=== PATIENT | male | born 1940 | race Caucasian/White ===

== ENCOUNTER 2019-02-15 09:16 | Emergency (ER) | payer MEDICARE ==
[~2019-02-15] VITALS: Ht 182.9 cm; Wt 70.3 kg
[2019-02-15] MEDS ORDERED: IV NORMAL SALINE 1000ML BAG 1,000 ML IV SCH (09:33)
--- NOTE | 2019-02-15 09:53 | EKG ---
[facility] [address] [place] [address] Test Date: 2019-02-15 Test Time: 09:27:37 Pat Name: TICO YORK Department: Room: Gender: M Administrative Dietitian: : 1940 Requested By: KARLO GUTIERREZ Order Number: [id number] Reading MD: Kyrie Bills MD Measurements Intervals [place] Rate: 171 P: OK: QRS: 5 QRSD: 90 T: 78 QT: 290 QTc: 491 Interpretive Statements SUPRAVENTRICULAR TACHYCARDIA ST & T ABNORMALITY, CONSIDER HIGH LATERAL ISCHEMIA OR LEFT VENTRICULAR STRAIN ABNORMAL ECG Electronically Signed On 02-21-2019 17:24:25 CDT by Kyrie Bills MD
[2019-02-15] MEDS ORDERED: MIDAZOLAM HCL/PF 5 MG/5 ML VIAL. NS ONE (10:00)
[2019-02-15] MEDS ORDERED: ADENOSINE 6 MG/2 ML VIAL. IV ONE (10:00)
--- NOTE | 2019-02-15 10:00 | PHYS DOC ---
Past Medical History Alcohol Use: None Drug Use: None Adult General Chief Complaint Chief Complaint: agitation, fall HPI HPI Patient is a 78 year old male who presents via EMS with agitation and fall. Patient has advanced dementia and is nonverbal and bedridden on hospice. Patient was at retirement and his took him home 3 days ago because she was not happy with the care. Patient stated he was not eating or drinking anything for the last 2 days. Hospice care was that started yesterday with consideration of :[facility]" placement. Patient was agitated and had a semi-fall from his bed and stuck at the rail of his hospital bed prior to arrival to ER and his called 911. Patient is nonverbal and does not follow commands. Patient had heart rate of 170s and blood pressure of 90/60 reported by EMS. Review of Systems Review of Systems Unable to obtain because of mental condition and nonverbal Current Medications Current Medications Current Medications Medications (Trade) Dose Ordered Sig/Robi Start Time Stop Time Status Last Admin Dose Admin Adenosine (Adenocard) 12 mg 1X ONCE 02/15/19 10:00 02/15/19 10:01 DC Fentanyl Citrate (Fentanyl 2ml Vial) 50 mcg 1X ONCE 02/15/19 11:30 02/15/19 11:31 DC 02/15/19 11:10 50 MCG Midazolam HCl (Versed) 5 mg 1X ONCE 02/15/19 10:00 02/15/19 10:01 DC Sodium Chloride 1,000 ml @ 1,000 mls/hr Q1H 02/15/19 09:33 02/15/19 10:32 DC 02/15/19 09:54 1,000 MLS/HR Allergies Allergies Allergies Coded Allergies Type Severity Reaction Last Updated Verified Penicillins Allergy Unknown 02/15/19 Yes Sulfa (Sulfonamide Antibiotics) Allergy Unknown 02/15/19 Yes levofloxacin Allergy Unknown 02/15/19 Yes Physical Exam Physical Exam Constitutional: Nonverbal, does not follow commands, keeps his eyes closed, agitated. HENT: Normocephalic, atraumatic. Eyes: Does not open his eyes Neck: Normal range of motion, no tenderness, supple, no stridor. [] Cardiovascular: Tachycardia Lungs & Thorax: Bilateral breath sounds clear to auscultation [] Abdomen: Bowel sounds normal, soft, no tenderness, no masses, no pulsatile masses. [] Skin: Warm, dry, no erythema, no rash. [] Extremities: Old wound of right knee, no deformity Neurologic: Moving extremities, nonresponsive to verbal stimuli Psychologic:unable to evaluate Current Patient Data Vital Signs Vital Signs Date Time Temp Pulse Resp B/P (MAP) Pulse Ox O2 Delivery O2 Flow Rate FiO2 02/15/19 10:52 96 18 102/70 (81) 96 Nasal Cannula 2.0 02/15/19 09:25 98.2 98.2 Lab Values Laboratory Tests Test 02/15/19 09:45 White Blood Count 13.8 x10^3/uL (4.0-11.0) H Red Blood Count 2.68 x10^6/uL (4.30-5.70) L Hemoglobin 8.5 g/dL (13.0-17.5) L Hematocrit 26.1 % (39.0-53.0) L Mean Corpuscular Volume 97 fL (79-100) Mean Corpuscular Hemoglobin 32 pg (25-35) Mean Corpuscular Hemoglobin Concent 33 g/dL (31-37) Red Cell Distribution Width 14.1 % (11.5-14.5) Platelet Count 612 x10^3/uL (140-400) H Neutrophils (%) (Auto) 87 % (31-73) H Lymphocytes (%) (Auto) 8 % (24-48) L Monocytes (%) (Auto) 5 % (0-9) Eosinophils (%) (Auto) 0 % (0-3) Basophils (%) (Auto) 0 % (0-3) Neutrophils # (Auto) 12.0 x10^3/uL (1.8-7.7) H Lymphocytes # (Auto) 1.0 x10^3/uL (1.0-4.8) Monocytes # (Auto) 0.7 x10^3/uL (0.0-1.1) Eosinophils # (Auto) 0.0 x10^3/uL (0.0-0.7) Basophils # (Auto) 0.0 x10^3/uL (0.0-0.2) Segmented Neutrophils % 91 % (35-66) H Lymphocytes % 6 % (24-48) L Monocytes % 2 % (0-10) Eosinophils % 1 % (0-5) Platelet Estimate Increased (ADEQUATE) Prothrombin Time 17.3 SEC (11.7-14.0) H Prothrombin Time INR 1.4 (0.8-1.1) H Sodium Level 152 mmol/L (136-145) H Potassium Level 4.4 mmol/L (3.5-5.1) Chloride Level 112 mmol/L (98-107) H Carbon Dioxide Level 28 mmol/L (21-32) Anion Gap 12 (6-14) Blood Urea Nitrogen 95 mg/dL (8-26) H Creatinine 2.8 mg/dL (0.7-1.3) H Estimated GFR (Cockcroft-Gault) 22.0 BUN/Creatinine Ratio 34 (6-20) H Glucose Level 216 mg/dL (70-99) H Calcium Level 9.3 mg/dL (8.5-10.1) Magnesium Level 2.6 mg/dL (1.8-2.4) H Total Bilirubin 0.5 mg/dL (0.2-1.0) Aspartate Amino Transferase (AST) 26 U/L (15-37) Alanine Aminotransferase (ALT) 27 U/L (16-63) Alkaline Phosphatase 29 U/L (46-116) L Creatine Kinase 150 U/L (39-308) Troponin I Quantitative 0.121 ng/mL (0.000-0.055) ZH-Tqr-[id number]-Type Natriuretic Peptide 1679 pg/mL (0-449) H Total Protein 6.2 g/dL (6.4-8.2) L Albumin 2.6 g/dL (3.4-5.0) L Albumin/Globulin Ratio 0.7 (1.0-1.7) L Lipase 335 U/L (73-393) Laboratory Tests 02/15/19 09:45 Laboratory Tests 02/15/19 09:45 EKG EKG EKG interpreted by me. EKG at 0927 showed SVT at this of 172, ST-T wave abnormalities. Radiology/Procedures Radiology/Procedures [] Course & Med Decision Making Course & Med Decision Making Pertinent Labs and Imaging studies reviewed. (See chart for details) Personal patient in ER showed 78-year-old male patient with advanced dementia and nonverbal brought in because of agitation. Patient had SVT at heart rate of 170s that spontaneously changed to normal sinus rhythm after starting IV fluid. Patient stated nonverbal while he was in ER. Labs showed severe dehydration and hyponatremia. Patient's who has DPOA was informed about test result and she decided to take patient home with hospice care. Patient signed AGAINST MEDICAL ADVICE and patient was transferred by EMS to his home. Dragon Disclaimer Dragon Disclaimer This electronic medical record was generated, in whole or in part, using a voice recognition dictation system. Departure Departure Impression: Primary Impression: Severe dehydration Additional Impressions: SVT (supraventricular tachycardia) Severe dementia DNR (do not resuscitate) Anemia Altered level of consciousness Disposition: 07 AGAINST MEDICAL ADVICE Condition: GUARDED Problem Qualifiers Additional Impressions: Anemia Anemia type: unspecified type Qualified Codes: D64.9 - Anemia, unspecified KARLO GUTIERREZ MD Feb 15, 2019 10:00
--- NOTE | 2019-02-15 10:02 | RAD ---
EXAM: AP View of the chest DATE: 02/15/2019 9:33 AM INDICATION: SVT, SOA COMPARISON: No Prior FINDINGS: The heart is not enlarged. Mediastinal and hilar contours are normal. No focal parenchymal airspace opacity. No pleural effusion or pneumothorax. IMPRESSION: 1. No radiographic evidence for acute cardiopulmonary process. Electronically signed by: Larry Jara MD (02/15/2019 9:59 AM) [facility]
[2019-02-15 10:07] LABS: BASO % 0 % (0-3); EOS % 0 % (0-3); HEMATOCRIT 26.1 % (39.0-53.0); HEMOGLOBIN 8.5 g/dL (13.0-17.5); LYMPH % 8 % (24-48); MEAN CORPUSCULAR HEMOGLOBIN 32 pg (25-35); MEAN CORPUSCULAR HGB CONC 33 g/dL (31-37); MEAN CORPUSCULAR VOLUME 97 fL (79-100); MONO # 0.7 x10^3/uL (0.0-1.1); MONO % 5 % (0-9); NEUT % 87 % (31-73); PLATELET COUNT 612 x10^3/uL (140-400); RED BLOOD COUNT 2.68 x10^6/uL (4.30-5.70); RED CELL DISTRIBUTION WIDTH 14.1 % (11.5-14.5); WHITE BLOOD COUNT 13.8 x10^3/uL (4.0-11.0)
[2019-02-15 10:18] LABS: PROTHROMBIN TIME PATIENT 17.3 SEC (11.7-14.0)
[2019-02-15 10:21] LABS: CALCIUM 9.3 mg/dL (8.5-10.1); CREATININE 2.8 mg/dL (0.7-1.3); POTASSIUM 4.4 mmol/L (3.5-5.1)
[2019-02-15 10:28] LABS: ALBUMIN 2.6 g/dL (3.4-5.0); ALBUMIN/GLOBULIN RATIO 0.7 (1.0-1.7); MAGNESIUM 2.6 mg/dL (1.8-2.4); TOTAL BILIRUBIN 0.5 mg/dL (0.2-1.0); TOTAL PROTEIN 6.2 g/dL (6.4-8.2)
[2019-02-15 10:52] VITALS: BP 102/70
[2019-02-15] MEDS ORDERED: fentaNYL PF VIAL 100 MCG/2 ML VIAL IM ONE (11:30)
[2019-02-15 12:00] LABS: % EOS 1 % (0-5); % LYMPHS 6 % (24-48); % MONOS 2 % (0-10); % SEGS 91 % (35-66); PLT ESTIMATE INCREASED (ADEQUATE)
== END 2019-02-15 12:13 | disposition home or self-care (01) ==
LOC: EDBD 09:16 → ER 09:16
DX: F03.90 Unspecified dementia, unspecified severity, without behavioral disturbance, psychotic disturbance, mood disturbance, and anxiety (principal); R45.1 Restlessness and agitation; E86.0 Dehydration; I47.1 Supraventricular tachycardia; D64.9 Anemia, unspecified; R40.4 Transient alteration of awareness; Z66 Do not resuscitate; Z88.0 Allergy status to penicillin; Z88.1 Allergy status to other antibiotic agents; Z88.2 Allergy status to sulfonamides
CPT/HCPCS: 36415; 71045; 80053; 82550; 83690; 83735; 83880; 84484; 85007; 85025; 85610; 93005; 96360; 96372; 99285; J3010; J7030; 96361; 96374; 99284-25